=== PATIENT | female | born 1950 | race Caucasian/White ===

== ENCOUNTER 2021-06-30 08:34 | Outpatient (CLI) | payer MEDICARE ==
[2021-06-30 17:37] LABS: SARS-CoV-2 PCR by NAA Not Detected (NotDetected)
== END 2021-06-30 08:35 | disposition home or self-care (01) ==
LOC: CSHLAB 08:34
PROVIDERS: ATTEND Internal Medicine Gastroenterology
DX: Z20.822 Contact with and (suspected) exposure to COVID-19 (principal)
CPT/HCPCS: U0003; U0005

== ENCOUNTER 2021-07-03 11:34 | Day surgery (SDC) | payer MEDICARE ==
[2021-07-01 14:21] VITALS: BMI 21.9
[2021-07-03] MEDS ORDERED: Lidocaine 1% MPF 2 ML VIAL ONE (11:40)
[2021-07-03] MEDS ORDERED: PROPOFOL 20 ML ONE ×2 (13:07→13:13)
== END 2021-07-03 14:00 | disposition home or self-care (01) ==
LOC: CSHSDC 11:34
PROVIDERS: ATTEND Internal Medicine Gastroenterology
DX: K22.2 Esophageal obstruction (principal); K44.9 Diaphragmatic hernia without obstruction or gangrene; K21.9 Gastro-esophageal reflux disease without esophagitis
CPT/HCPCS: J2704